=== PATIENT | female | born 2000 | race Two or more races ===

== ENCOUNTER 2024-09-12 03:25 | Emergency (ER) | payer MEDICAID, SELFPAY ==
[2024-09-12 03:25] VITALS: BMI 27.7
[2024-09-12 03:51] VITALS: BP 103/67; PULSE 80; RESP 19; TEMP 36.8; O2SAT 99
--- NOTE | 2024-09-12 03:54 | XR_ITS ---
Examination: Transvaginal ultrasound of the pelvis, complete Technique: Transvaginal sonographic images pelvis performed using burdick scale imaging Exam date and time: September 13, 2019 5041 hrs. Indications: Pelvic pain radiating to the back beginning 4 days ago Findings: Uterus 5.4 cm endometrial stripe 0.4 cm No uterine mass or intrauterine gestation Right ovary obscured by bowel gas Left ovary 3.6 cm arterial flow Impression: No uterine mass or intrauterine gestation
--- NOTE | 2024-09-12 03:55 | PD.EDRME ---
Rapid Medical Screening Exam [facility] Arrival date/time: 09/12/24 03:25 24F with no significant PMH presents to ED with 3-4 days of L pelvic pain. Possible dysuria. Patient denies vaginal bleeding and discharge. Patient had her cycle this month already. Chief Complaint: Abdominal Pain Vital signs: Vital Signs Temperature 98.2 F 09/12/24 03:51 Pulse Rate 80 09/12/24 03:51 Respiratory Rate 19 09/12/24 03:51 Blood Pressure 103/67 09/12/24 03:51 Pulse Oximetry (%) 99 09/12/24 03:51 Oxygen Delivery Method Room Air 09/12/24 03:51
[2024-09-12 05:12] LABS: Collection Type, Urine Clean Catch
[2024-09-12 05:22] LABS: Basophils % (Auto) 0 % (0-2.5); Eosinophils # (Auto) 0.1 Thou/mm3 (0.0-0.5); Eosinophils % (Auto) 2 % (0-10); Hematocrit 43.4 % (36.0-46.0); Hemoglobin 14.1 g/dL (12.0-16.0); Immature Granulocytes % (Auto) 0 % (0-0); Immature Granulocytes Auto 0.02 Thou/mm3 (0.00-0.00); Lymphocytes # (Auto) 2.3 Thou/mm3 (1.0-4.8); Lymphocytes % (Auto) 33 % (10-50); Mean Corpuscular HGB Conc 32.5 g/dl (31.0-37.0); Mean Corpuscular Hemoglobin 27.3 pg (25.0-35.0); Mean Corpuscular Volume 84 fL (80-100); Monocytes # (Auto) 0.4 Thou/mm3 (0.0-0.8); Monocytes % (Auto) 6 % (0-12); Neutrophils # (Auto) 4.1 Thou/mm3 (1.8-7.7); Neutrophils % (Auto) 59 % (37-80); Nucleated Red Blood Cell % 0 /100 WBC (0); Platelet Count 380 Thou/mm3 (140-440); RDW Standard Deviation 40.5 fL (36.4-46.3); Red Blood Count 5.16 Miln/mm3 (4.00-5.20)
[2024-09-12 05:28] LABS: Bilirubin,Urine Negative (Negative); Blood,Urine Negative (Negative); Clarity,Urine Clear (Clear/Hazy); Color,Urine Yellow (Lt Yel-Yel); Culture Indicated,Urine Not Indicated; Glucose, Urine Negative (Negative); Ketones,Urine Negative (Negative); Leukocyte Esterase,Urine Negative (Negative); Nitrite,Urine Negative (Negative); Protein,Urine Trace (Neg - Trace); RBC,Urine 7 /hpf (0-3); Specific Gravity,Urine 1.032 (1.001-1.035); Squamous Epithelial Cell,Urine 7 /hpf (0-5); Urobilinogen,Urine Negative mg/dL (0.0-1.0); WBC,Urine 2 /hpf (0-5)
[2024-09-12 05:29] LABS: HCG Qualitative,Urine Negative
--- NOTE | 2024-09-12 05:29 | PRELIM_ITS ---
Pelvic ultrasound (transabdominal and transvaginal). September 12, 2024 at 0410 hours Clinical history: Left pelvic pain. Technique: Real-time, grayscale, transabdominal and transvaginal pelvic ultrasound was performed using Duplex scanning including arterial inflow, venous outflow, color and spectral Doppler. Comparison: No prior study is available for comparison. Findings: The uterus is normal in size measuring 5.4 x 3.1 x 3.8 cm (sagittal by AP by transverse). The endometrium is unremarkable and measures 4 mm. The right ovary is obscured by bowel gas. The left ovary measures 3.0 x 2.0 x 2.6 cm and is unremarkable. Left ovary demonstrate color flow and spectral waveforms on Doppler evaluation. There is no adnexal mass. There is no free fluid on the submitted images. Impression: Nonvisualized right ovary. Otherwise unremarkable pelvic sonogram. Report Electronically Signed By: Scott Donis 09/12/2024 5:27:17 AM [EST]
[2024-09-12 05:56] LABS: Alanine Aminotransferase < 7 U/L (10-49); Albumin, Serum 5.3 gm/dL (3.5-5.0); Albumin/Globulin Ratio 1.8 (1.2-2.2); Alkaline Phosphatase 86 U/L (46-116); Anion Gap 8 (7-16); Aspartate Amino Transferase 12 U/L (0-34); BUN/Creatinine Ratio 18 Ratio (12-20); Bilirubin,Total 0.3 mg/dL (0.3-1.2); Blood Urea Nitrogen 14 mg/dL (9-23); Calcium 10.1 mg/dL (8.3-10.6); Calcium (Corrected) 10.1 mg/dL (8.5-10.1); Carbon Dioxide 28.7 mMol/L (20.0-31.0); Chloride 104 mMol/L (98-107); Creatinine (Component) 0.8 mg/dL (0.6-1.3); Estimated Creatinine Clearance 114.3 mL/min (>60); Glucose 103 mg/dL (74-106); Lipase 35 U/L (12-53); Osmolality,Calculated 281 (275-295); Potassium 3.5 mMol/L (3.4-5.1); Sodium 141 mMol/L (136-145); Total Protein 8.3 gm/dL (5.7-8.2); eGFR > 60 See Note
[2024-09-12 06:44] VITALS: BP 119/68; PULSE 84; RESP 16; TEMP 36.6; O2SAT 99
[2024-09-12 07:56] VITALS: BP 98/50; PULSE 72; RESP 16; TEMP 36.7; O2SAT 98
--- NOTE | 2024-10-01 07:08 | PD.EDADULT ---
ED General RME/HPI General Chief complaint: Abdominal Pain Stated complaint: PELVIC PAIN Time Seen by Provider: 09/12/24 07:55 Arrival date/time: 09/12/24 03:25 RME / HPI RME / HPI narrative: 09/12/24 03:25 24F with no significant PMH presents to ED with 3-4 days of L pelvic pain. Possible dysuria. Patient denies vaginal bleeding and discharge. Patient had her cycle this month already. 24-year-old female with a history of irregular menstrual cycle axles, chronic perimenstrual pains, who presents with 3 to 4 days of worsening left pelvic/adnexal pain that is greater than her normal pelvic pain. She denies vaginal bleeding or discharge. She denies dysuria or polyuria, Related Data Previous Rx's ?Medication ?Instructions ?Recorded naproxen 500 mg tablet (Naprosyn) 500 mg PO BID #30 tabs 05/31/20 meclizine 50 mg tablet 50 mg PO BID PRN dizziness #14 tabs 09/23/24 ondansetron 4 mg disintegrating 4 mg PO Q6H PRN nausea and 09/23/24 tablet vomiting #10 tabs Allergies Allergy/AdvReac Type Severity Reaction Status Date / Time No Known Allergies Allergy Verified 09/23/24 07:09 Review of Systems Review of Systems Systems Reviewed: All systems reviewed, normal except as documented ED Exam Narrative Physical exam: GENERAL APPEARANCE: AxOx4, generally well-appearing, no acute distress. HEART: Normal rate and regular rhythm, normal S1/S1, no m/r/g LUNGS: CTAB, moving air well. No crackles or wheezes are heard. ABDOMEN: Soft, nontender, nondistended with good bowel sounds heard. NEUROLOGICAL: Grossly nonfocal. Alert and oriented, moving all 4 extremities. CN not formally tested but appear grossly intact. Observed to ambulate with normal gait. Skin: Warm and dry without any rash. Course Quality Measures none Orders Category Date Time Status US transvaginal Stat Exams 09/12/24 03:54 Completed CBC Stat Lab 09/12/24 04:42 Completed CMP [Comprehensive Metabolic Panel] Stat Lab 09/12/24 04:42 Completed HCG Qualitative,Urine Stat Lab 09/12/24 05:01 Completed Lipase Stat Lab 09/12/24 04:42 Completed Urinalysis, C/S if Indicated Stat Lab 09/12/24 05:01 Completed Vital Signs Vital signs: Vital Signs Temperature 98.2 F 09/12/24 03:51 Pulse Rate 80 09/12/24 03:51 Respiratory Rate 19 09/12/24 03:51 Blood Pressure 103/67 09/12/24 03:51 Pulse Oximetry (%) 99 09/12/24 03:51 Oxygen Delivery Method Room Air 09/12/24 03:51 MDM Patient data [facility] records [facility] records Clinical information provided by:: patient and parent Social determinants that could affect healthcare access:: none Patient has the following chronic illnesses:: None How is presenting disease/condition affected by chronic disease/condition?: no chronic disease Evaluation data The following diagnostics were reviewed and interpreted by me:: lab results and radiology exam(s) Lab and/or radiology exams considered but not ordered:: None Interpretation Summary: As per narrative Medications Medications considered but not ordered:: None Medication administrations:: None Consultations Consultation(s) initiated? (list below): No Diagnosis Differential Diagnosis ED Complaint MDM: Chronic pelvic pain, ovarian torsion, tubo-ovarian abscess, PID Most likely diagnosis given after review of the tests above:: See below Admission Indicated Admission indicated?: not indicated Explain why admission is indicated or not indicated:: As per narrative Admission Request Was there a request for admission?: No Disposition Plan Disposition Plan: Discharge Discharge Attestation Discharge Attestation: The patient and all family members were given an opportunity to ask questions and understood the discharge instructions. Discharge instructions specifically effects, indications for sooner follow up or return to the emergency department, and the expected course of current diagnosis. Patient condition: Stable Medical Decision Making MDM Narrative MDM Narrative: Ms. Da Silva is a clinically well-appearing female with left adnexal pain. She is test negative here. Historically she reports chronic perimenstrual pains of which she has seen her primary care doctor for. She does have pain today which is outside of her cycle for assessment. Abdominal exam is benign. Laboratory testing was sent via the E process which shows no acute findings. Significant was a pelvic ultrasound which shows adequate arterial flow to the left ovary without mass, no signs of ovarian torsion. The right ovary was not visible, however she is not not exhibit right adnexal pain. I did review these results there were incomplete in terms of right adnexal pain with the patient and her mother. As she is clinically she is well-appearing with a benign exam, she is low risk and appropriate for outpatient follow-up. She can follow-up with [facility] physician, emergency consultation is not indicated today. Differential Diagnosis Differential Diagnosis: Chronic pelvic pain, ovarian torsion, tubo-ovarian abscess, PID Lab Data 09/12/24 04:42 09/12/24 04:42 Labs: Lab Results 09/12/24 09/12/24 Range/Units 04:42 05:01 WBC 7.0 (3.6-11.0) Thou/mm3 RBC 5.16 (4.00-5.20) Miln/mm3 Hgb 14.1 (12.0-16.0) g/dL Hct 43.4 (36.0-46.0) % MCV 84 (80-100) fL MCH 27.3 (25.0-35.0) pg MCHC 32.5 (31.0-37.0) g/dl RDW Std Deviation 40.5 (36.4-46.3) fL Plt Count 380 (140-440) Thou/mm3 Neut % (Auto) 59 (37-80) % Lymph % (Auto) 33 (10-50) % Saline % (Auto) 6 (0-12) % Eos % (Auto) 2 (0-10) % Baso % (Auto) 0 (0-2.5) % Neut # (Auto) 4.1 (1.8-7.7) Thou/mm3 Lymph # (Auto) 2.3 (1.0-4.8) Thou/mm3 Saline # (Auto) 0.4 (0.0-0.8) Thou/mm3 Eos # (Auto) 0.1 (0.0-0.5) Thou/mm3 Baso # (Auto) 0.0 (0.0-0.2) Thou/mm3 Immature Gran # (Auto) 0.02 H (0.00-0.00) Thou/mm3 Absolute Nucleated RBC 0.00 (0.00-0.00) Thou/mm3 Immature Gran % 0 (0-0) % Nucleated RBC % 0 (0) /100 WBC Sodium 141 (136-145) mMol/L Potassium 3.5 (3.4-5.1) mMol/L Chloride 104 (98-107) mMol/L Carbon Dioxide 28.7 (20.0-31.0) mMol/L Anion Gap 8 (7-16) BUN 14 (9-23) mg/dL Creatinine 0.8 (0.6-1.3) mg/dL Estim Creat Clear Calc 114.3 (>60) mL/min eGFR > 60 (60 - ) See Note BUN/Creatinine Ratio 18 (12-20) Ratio Glucose 103 (74-106) mg/dL Calculated Osmolality 281 (275-295) Calcium 10.1 (8.3-10.6) mg/dL Corrected Calcium 10.1 (8.5-10.1) mg/dL Total Bilirubin 0.3 (0.3-1.2) mg/dL AST 12 (0-34) U/L ALT < 7 L (10-49) U/L Alkaline Phosphatase 86 (46-116) U/L Total Protein 8.3 H (5.7-8.2) gm/dL Albumin 5.3 H (3.5-5.0) gm/dL Globulin 3.0 (2.3-3.5) gm/dL Albumin/Globulin Ratio 1.8 (1.2-2.2) Lipase 35 (12-53) U/L Ur Collection Type Clean Catch Urine Color Yellow (Lt Yel-Yel) Urine Clarity Clear (Clear/Hazy) Urine pH 6.0 (5.0-7.0) Ur Specific [place] 1.032 (1.001-1.035) Urine Protein Trace (Neg - Trace) Urine Glucose (UA) Negative (Negative) Urine Ketones Negative (Negative) Urine Blood Negative (Negative) Urine Nitrite Negative (Negative) Urine Bilirubin Negative (Negative) Urine Urobilinogen (Auto) Negative (0.0-1.0) mg/dL Ur Leukocyte Esterase Negative (Negative) Urine RBC 7 H (0-3) /hpf Urine WBC 2 (0-5) /hpf Ur Squamous Epith Cells 7 H (0-5) /hpf Urine Bacteria None (None) Ur Culture Indicated? Not Indicated Urine HCG, Qual Negative Discharge Plan Plan Patient Disposition: HOME (Self Care) Prescriptions/Referrals Prescriptions/Med Rec: No Action naproxen [Naprosyn] 500 mg tablet 500 mg PO BID Qty: 30 0RF meclizine 50 mg tablet 50 mg PO BID PRN (Reason: dizziness) Qty: 14 0RF ondansetron 4 mg tablet,disintegrating 4 mg PO Q6H PRN (Reason: nausea and vomiting) Qty: 10 0RF Referrals: No Primary/Family,Physician [Primary Care Provider] - In 1 week Problem List Clinical Impression: Chronic female pelvic pain Patient/Caregiver Discharge Instructions Education Materials: ED Pelvic Pain, Unknown Cause Additional Instructions: Follow-up with your [facility] as needed. You can return to the emergency department sooner symptoms worsen or if notes any new, concerning issues. Print Language: Irish Stand Alone Forms: Claudia Award Info., Patient Portal Info Letter
== END 2024-09-12 08:27 | disposition home or self-care (01) ==
PROVIDERS: Physician Assistant; Emergency Provider Emergency Medicine
DX: R10.2 Pelvic and perineal pain (principal)
CPT/HCPCS: 36415; 76830; 80053; 81001; 81025; 83690; 85025; 99284

== ENCOUNTER 2024-09-23 07:07 | Emergency (ER) | payer MEDICAID, SELFPAY ==
[2024-09-23 07:08] VITALS: BMI 27.4
[2024-09-23 07:26] VITALS: BP 143/90; PULSE 100; RESP 18; TEMP 36.8; O2SAT 96; BMI 28.5
--- NOTE | 2024-09-23 07:34 | XR_ITS ---
EXAMINATION: CT head/brain wo con ORDERING PROVIDER: HILOTN Dumont HISTORY: dizziness/lightheaded TECHNIQUE: CT scanner was used in the volumetric, helical non-contrast acquisition of the head with 2-D and 3-D reformats created on a separate workstation and submitted for interpretation. Institutional dose reducing protocols were utilized. RADIATION DOSE: DLP 950 mGy-cm COMPARISON: None. FINDINGS: BRAIN: No acute intracranial hemorrhage, mass effect, or midline shift. Punctate calcific density in the right superior occipital lobe. RESENDIZ-WHITE DIFFERENTIATION: Preserved. EXTRA-AXIAL SPACES: No abnormal collection. SULCI: Normal. VENTRICLES: Normal. BASAL CISTERNS: Normal. VESSELS: No hyperdense vessel sign. DURAL VENOUS SINUSES: Symmetric attenuation. POSTERIOR FOSSA: Normal. MASTOID AIR CELLS: Clear. PARANASAL SINUSES: Trace left maxillary sinus mucosal thickening. ORBITS: Normal. BONES: Normal. SCALP: Normal. IMPRESSION: No acute intracranial findings.
--- NOTE | 2024-09-23 07:34 | EKG_ITS ---
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
--- NOTE | 2024-09-23 07:35 | PD.EDRME ---
Rapid Medical Screening Exam [facility] Arrival date/time: 09/23/24 07:07 24-year-old female with no known medical history presents to the emergency room with a chief complaint of dizziness, lightheadedness, headaches x 2 days. Patient states when she closes her eyes the room spins. I have greeted and performed a focused initial assessment of this patient. A comprehensive ED assessment and evaluation of the patient, analysis of all test results, and completion of the medical decision making process will be conducted by additional ED providers. Chief Complaint: Dizziness Time Seen by Provider: 09/23/24 07:11 Vital signs: Vital Signs Temperature 98.3 F 09/23/24 07:26 Pulse Rate 100 09/23/24 07:26 Respiratory Rate 18 09/23/24 07:26 Blood Pressure 143/90 H 09/23/24 07:26 Pulse Oximetry (%) 96 09/23/24 07:26 Oxygen Delivery Method Room Air 09/23/24 07:26 Vital signs reviewed by provider: Yes
[2024-09-23] MEDS: MECLIZINE HCL 25 MG TABLET 50 MG PO (07:49)
[2024-09-23] MEDS: ONDANSETRON ODT 4 MG TABRAP PO (07:50)
--- NOTE | 2024-09-23 07:50 | PD.EDDIZZY ---
ED Dizzyness RME/HPI General Chief Complaint: Dizziness Stated Complaint: DIZZY,NAUSEA Time Seen by Provider: 09/23/24 07:11 Source: patient Arrival date/time: 09/23/24 07:07 24-year-old female with no known medical history presents to the emergency room with a chief complaint of dizziness, lightheadedness, headaches x 2 days. Patient states when she closes her eyes the room spins. Mode of arrival: ambulatory Limitations: no limitations RME / HPI RME / HPI Narrative: 09/23/24 07:07 24-year-old female with no known medical history presents to the emergency room with a chief complaint of dizziness, lightheadedness, headaches x 2 days. Patient states when she closes her eyes the room spins. I have greeted and performed a focused initial assessment of this patient. A comprehensive ED assessment and evaluation of the patient, analysis of all test results, and completion of the medical decision making process will be conducted by additional ED providers. Related Data Previous Rx's ?Medication ?Instructions ?Recorded naproxen 500 mg tablet (Naprosyn) 500 mg PO BID #30 tabs 05/31/20 Allergies Allergy/AdvReac Type Severity Reaction Status Date / Time No Known Allergies Allergy Verified 09/23/24 07:09 ED Exam General Limitations: Present no limitations Course Orders Category Date Time Status EKG (ED ONLY) *Do not use* NOW Care 09/23/24 07:34 Active Orthostatic Vitals NOW Care 09/23/24 07:[address] head/brain wo con Stat Exams 09/23/24 07:34 Ordered EKG (ED Only) Stat Exams 09/23/24 07:34 Ordered CBC Stat Lab 09/23/24 07:34 Ordered Comprehensive Metabolic Panel Stat Lab 09/23/24 07:34 Ordered Troponin I Stat Lab 09/23/24 07:34 Ordered Urinalysis Stat Lab 09/23/24 07:34 Ordered Urine Culture Stat Lab 09/23/24 07:34 Ordered Meclizine HCl [Antivert] Med 09/23/24 07:34 Discontinued 50 mg PO X1 ONE Ondansetron Odt [Zofran Odt] Med 09/23/24 07:34 Discontinued 4 mg PO X1 ONE Vital Signs Vital signs: Vital Signs Temperature 98.3 F 09/23/24 07:26 Pulse Rate 100 09/23/24 07:26 Respiratory Rate 18 09/23/24 07:26 Blood Pressure 143/90 H 09/23/24 07:26 Pulse Oximetry (%) 96 09/23/24 07:26 Oxygen Delivery Method Room Air 09/23/24 07:26 Dizziness Medications / Prescriptions Medication administrations:: Medication Administration History Discontinued Medications Meclizine HCl (Meclizine Hcl 25 Mg Tablet) 50 mg PO X1 ONE Stop: 09/23/24 07:35 Last Admin: 09/23/24 07:49 Dose: 50 mg Documented By: AMARI Ondansetron HCl (Ondansetron Odt 4 Mg Tabrap) 4 mg PO X1 ONE; Protocol Stop: 09/23/24 07:35 Last Admin: 09/23/24 07:50 Dose: 4 mg Documented By: AMARI Discharge Plan Prescriptions/Referrals Prescriptions/Med Rec: No Action naproxen [Naprosyn] 500 mg tablet 500 mg PO BID Qty: 30 0RF Patient/Caregiver Discharge Instructions Print Language: Cameroonian
[2024-09-23 08:21] LABS: Basophils % (Auto) 0 % (0-2.5); Eosinophils # (Auto) 0.1 Thou/mm3 (0.0-0.5); Eosinophils % (Auto) 2 % (0-10); Hematocrit 41.6 % (36.0-46.0); Hemoglobin 13.5 g/dL (12.0-16.0); Immature Granulocytes % (Auto) 0 % (0-0); Immature Granulocytes Auto 0.01 Thou/mm3 (0.00-0.00); Lymphocytes # (Auto) 1.8 Thou/mm3 (1.0-4.8); Lymphocytes % (Auto) 28 % (10-50); Mean Corpuscular HGB Conc 32.5 g/dl (31.0-37.0); Mean Corpuscular Hemoglobin 27.5 pg (25.0-35.0); Mean Corpuscular Volume 85 fL (80-100); Monocytes # (Auto) 0.3 Thou/mm3 (0.0-0.8); Monocytes % (Auto) 5 % (0-12); Neutrophils # (Auto) 4.2 Thou/mm3 (1.8-7.7); Neutrophils % (Auto) 65 % (37-80); Nucleated Red Blood Cell % 0 /100 WBC (0); Platelet Count 300 Thou/mm3 (140-440); RDW Standard Deviation 41.7 fL (36.4-46.3); Red Blood Count 4.91 Miln/mm3 (4.00-5.20); White Blood Count 6.5 Thou/mm3 (3.6-11.0)
[2024-09-23 08:38] LABS: Alanine Aminotransferase 13 U/L (10-49); Albumin, Serum 4.8 gm/dL (3.5-5.0); Albumin/Globulin Ratio 1.7 (1.2-2.2); Alkaline Phosphatase 68 U/L (46-116); Anion Gap 9 (7-16); Aspartate Amino Transferase 14 U/L (0-34); BUN/Creatinine Ratio 14 Ratio (12-20); Bilirubin,Total 0.4 mg/dL (0.3-1.2); Blood Urea Nitrogen 11 mg/dL (9-23); Carbon Dioxide 24.9 mMol/L (20.0-31.0); Chloride 104 mMol/L (98-107); Creatinine (Component) 0.8 mg/dL (0.6-1.3); Estimated Creatinine Clearance 115.8 mL/min (>60); Globulin 2.9 gm/dL (2.3-3.5); Glucose 101 mg/dL (74-106); Osmolality,Calculated 275 (275-295); Potassium 3.8 mMol/L (3.4-5.1); Sodium 138 mMol/L (136-145); Total Protein 7.7 gm/dL (5.7-8.2); Troponin I < 0.002 ng/mL (0.0-0.045); eGFR > 60 See Note
--- NOTE | 2024-09-23 08:52 | PC.NURSE ---
PT STATES THE MECLIZINE HAS NOT HELPED HER DIZZINESS. PT REQUESTED THIS NURSE TO GO TO THE BATHROOM WITH HER BECAUSE SHE WAS AFRAID SHE WOULD FALL OVER. THIS NURSE WENT TO THE BATHROOM W/ PT AND HELPED HER GIVE A URINE SPECIMEN. NOTE GIVEN TO JONATHAN MAYA RE: NO RESULTS FROM MECLIZINE. PT ALSO WONDERS IF HER EARS CAN BE LOOKED IN TO SEE IF SHE HAS AN EAR INFECTION. PROVIDER INFORMED.
[2024-09-23 09:59] LABS: Collection Type, Urine Clean Catch
[2024-09-23 10:13] LABS: Bacteria,Urine Rare; Bilirubin,Urine Negative (Negative); Blood,Urine Negative (Negative); Clarity,Urine Clear (Clear/Hazy); Color,Urine Colorless (Lt Yel-Yel); Glucose, Urine Negative (Negative); Ketones,Urine Negative (Negative); Leukocyte Esterase,Urine Positive (Negative); Nitrite,Urine Negative (Negative); Protein,Urine Negative (Neg - Trace); RBC,Urine 11 /hpf (0-3); Specific Gravity,Urine 1.008 (1.001-1.035); Squamous Epithelial Cell,Urine 4 /hpf (0-5); Urobilinogen,Urine Negative mg/dL (0.0-1.0); WBC,Urine 83 /hpf (0-5)
[2024-09-23 11:48] VITALS: BP 117/84; PULSE 94; RESP 18; TEMP 36.8; O2SAT 99
[2024-09-23 11:51] LABS: HCG Qualitative,Urine Negative
--- NOTE | 2024-09-23 11:57 | PD.EDDIZZY ---
ED Dizzyness RME/HPI General Chief Complaint: Dizziness Stated Complaint: DIZZY,NAUSEA Time Seen by Provider: 09/23/24 07:11 Arrival date/time: 09/23/24 07:07 This is a 24-year-old female that comes into the emergency room with complaints of lightheadedness, dizziness, and headache for 2 days. Hx migraines. RME / HPI RME / HPI Narrative: 09/23/24 07:07 24-year-old female with no known medical history presents to the emergency room with a chief complaint of dizziness, lightheadedness, headaches x 2 days. Patient states when she closes her eyes the room spins. I have greeted and performed a focused initial assessment of this patient. A comprehensive ED assessment and evaluation of the patient, analysis of all test results, and completion of the medical decision making process will be conducted by additional ED providers. Related Data Previous Rx's ?Medication ?Instructions ?Recorded naproxen 500 mg tablet (Naprosyn) 500 mg PO BID #30 tabs 05/31/20 cephalexin 500 mg capsule 500 mg PO TID 7 days #21 caps 09/23/24 meclizine 50 mg tablet 50 mg PO BID PRN dizziness #14 tabs 09/23/24 ondansetron 4 mg disintegrating 4 mg PO Q6H PRN nausea and 09/23/24 tablet vomiting #10 tabs Allergies Allergy/AdvReac Type Severity Reaction Status Date / Time No Known Allergies Allergy Verified 09/23/24 07:09 Review of Systems Review of Systems Systems Reviewed: All systems reviewed, normal except as documented Past Medical History Past Medical History CARDIAC: Negative Congestive Heart Failure RESPIRATORY: Negative Chronic Obstructive Pulmonary Disease (COPD) GENITOURINARY: Negative Renal Disease ENDOCRINE: Negative Diabetes Mellitus Type 1 or Diabetes Mellitus Type 2 Social History SMOKING STATUS: Never smoker Travel History EBOLA RISK: No ED Exam General General appearance: Present alert and in no apparent distress Head Head exam: Present atraumatic Eye Eye exam: Present normal appearance, PERRL and EOMI ENT ENT exam: Present normal exam, normal oropharynx and mucous membranes moist Neck Neck exam: Present normal inspection, full ROM and trachea midline Chest Chest inspection: Present normal inspection and symmetric chest wall rise Respiratory Respiratory exam: Present normal lung sounds bilaterally Cardiovascular Cardiovascular exam: Present regular rate, normal rhythm and normal heart sounds Abdominal Exam Abdominal exam: Present soft Extremities Exam Extremities exam: Present normal inspection and full ROM Back Exam Back exam: Present normal inspection and full ROM Neurological Exam Neurological exam: Present alert, oriented X3 and CN II-XII intact Psychiatric Psychiatric exam: Present normal affect and normal mood Skin Skin exam: Present warm, dry, intact and normal color Course Quality Measures none Orders Category Date Time Status EKG (ED ONLY) *Do not use* NOW Care 09/23/24 07:34 Completed Orthostatic Vitals NOW Care 09/23/24 07:[address] head/brain wo con Stat Exams 09/23/24 07:34 Completed EKG (ED Only) Stat Exams 09/23/24 07:34 Draft CBC Stat Lab 09/23/24 08:00 Completed Comprehensive Metabolic Panel Stat Lab 09/23/24 08:00 Completed HCG Qualitative,Urine Stat Lab 09/23/24 09:30 Completed Troponin I Stat Lab 09/23/24 08:00 Completed Urinalysis Stat Lab 09/23/24 09:30 Completed Urine Culture Stat Lab 09/23/24 09:30 Completed Ibuprofen Tab [Motrin Tab] Med 09/23/24 12:54 Discontinued 800 mg PO X1 ONE Meclizine HCl [Antivert] Med 09/23/24 07:34 Discontinued 50 mg PO X1 ONE Ondansetron Odt [Zofran Odt] Med 09/23/24 07:34 Discontinued 4 mg PO X1 ONE Prochlorperazine Maleate [Compazine] Med 09/23/24 12:54 Discontinued 5 mg PO X1 ONE cefTRIAXone [Rocephin] 1,000 mg Med 09/23/24 12:54 Discontinued Lidocaine 1% 20 ml [Xylocaine 1% 20 ML] 2.1 ml IM X1 Vital Signs Vital signs: Vital Signs Temperature 98.3 F 09/23/24 07:26 Pulse Rate 100 09/23/24 07:26 Respiratory Rate 18 09/23/24 07:26 Blood Pressure 143/90 H 09/23/24 07:26 Pulse Oximetry (%) 96 09/23/24 07:26 Oxygen Delivery Method Room Air 09/23/24 07:26 Procedures -ED EKG Interpretation #1: Date of EK09/23/24 Time of EK:55 Rate: 100 Interpretation: Interpreted by me (sinus rhythm/sinus tachycardia) EKG Impression: Normal sinus rhythm, No ectopy, Normal QRS and Normal intervals Dizziness MDM Narrative MDM Narrative:: Patient feels better after meclizine. Patient able to ambulate without assistance. Patient white count was 6.5 hemoglobin and hematocrit are 13.5 and 41.6 CMP unremarkable urine shows some leukocyte Estrace, RBCs, white blood cells. Patient was having some abdominal pain. Will treat patient for UTI. I explained to patient that I will send her home with some meclizine. EKG shows sinus tachycardia ct head:FINDINGS: BRAIN: No acute intracranial hemorrhage, mass effect, or midline shift. Punctate calcific density in the right superior occipital lobe. RESENDIZ-WHITE DIFFERENTIATION: Preserved. EXTRA-AXIAL SPACES: No abnormal collection. SULCI: Normal. VENTRICLES: Normal. BASAL CISTERNS: Normal. VESSELS: No hyperdense vessel sign. DURAL VENOUS SINUSES: Symmetric attenuation. POSTERIOR FOSSA: Normal. MASTOID AIR CELLS: Clear. PARANASAL SINUSES: Trace left maxillary sinus mucosal thickening. ORBITS: Normal. BONES: Normal. SCALP: Normal. IMPRESSION: No acute intracranial findings. Follow up with primary provider in 1-2 days. Come back to ED if symptoms change or worsen Patient data External records reviewed:: [facility] previous records Clinical information provided by:: patient Social determinants that could affect healthcare access:: none Patient has the following chronic illnesses:: none How is presenting disease/condition affected by chronic disease/condition?: no chronic disease Evaluation data The following diagnostics were reviewed and interpreted by me:: lab results, radiology exam(s) and EKG tracing(s) Lab and/or radiology exams considered but not ordered:: none Interpretation Summary: see note Medications / Prescriptions Medications or Prescriptions considered but not ordered:: none Medication administrations:: Medication Administration History Discontinued Medications Ceftriaxone Sodium 1,000 mg/ (Lidocaine HCl 2.1 ml) 0 mg IM X1 ONE Stop: 09/23/24 12:55 Last Admin: 09/23/24 13:27 Dose: 1,000 mg Documented By: DARIELA Ibuprofen (Ibuprofen Tab 400 Mg Tablet) 800 mg PO X1 ONE Stop: 09/23/24 12:55 Last Admin: 09/23/24 13:23 Dose: 800 mg Documented By: DARIELA Meclizine HCl (Meclizine Hcl 25 Mg Tablet) 50 mg PO X1 ONE Stop: 09/23/24 07:35 Last Admin: 09/23/24 07:49 Dose: 50 mg Documented By: AMARI Ondansetron HCl (Ondansetron Odt 4 Mg Tabrap) 4 mg PO X1 ONE; Protocol Stop: 09/23/24 07:35 Last Admin: 09/23/24 07:50 Dose: 4 mg Documented By: AMARI Prochlorperazine Maleate (Prochlorperazine Maleate 5 Mg Tablet) 5 mg PO X1 ONE Stop: 09/23/24 12:55 Last Admin: 09/23/24 14:13 Dose: 5 mg Documented By: DARIELA Comments: Given after brought from pharmacy see mar Consultations Consultation(s) initiated? (list below): No Diagnosis Most likely diagnosis given after review of the tests above:: uti Admission Indicated Admission indicated?: not indicated Admission Request Was there a request for admission?: No Disposition Plan Disposition Plan: Discharge Discharge Attestation Discharge Attestation: The patient and all family members were given an opportunity to ask questions and understood the discharge instructions. Discharge instructions specifically effects, indications for sooner follow up or return to the emergency department, and the expected course of current diagnosis. Patient condition: Stable Discharge Plan Plan Patient Disposition: HOME (Self Care) Patient condition on transfer: Stable Prescriptions/Referrals Prescriptions/Med Rec: New cephalexin 500 mg capsule 500 mg PO TID 7 Days Qty: 21 0RF meclizine 50 mg tablet 50 mg PO BID PRN (Reason: dizziness) Qty: 14 0RF ondansetron 4 mg tablet,disintegrating 4 mg PO Q6H PRN (Reason: nausea and vomiting) Qty: 10 0RF No Action naproxen [Naprosyn] 500 mg tablet 500 mg PO BID Qty: 30 0RF Referrals: No Primary/Family,Physician [Primary Care Provider] - In 1 week Problem List Clinical Impression: Dizziness, UTI (urinary tract infection) Patient/Caregiver Discharge Instructions Discharge Activity: activity as tolerated Education Materials: Vertigo Medicine Tx, ED CYSTITIS Female Adult Additional Instructions: Follow up with primary provider in 1-2 days. Come back to ED if symptoms change or worsen. Follow-up with urine culture with primary provider. Print Language: Irish Stand Alone Forms: Claudia Award Info., Patient Portal Info Letter PA/HILTON Supervising Physician PA/SIDE DOOR WORKER Supervising Physician: [email or web address]
[2024-09-23 12:36] VITALS: BP 115/77; BP 119/75; BP 124/72; PULSE 84; PULSE 88; PULSE 94
[2024-09-23] MEDS: IBUPROFEN TAB 400 MG TABLET 800 MG PO (13:23)
[2024-09-23] MEDS: cefTRIAXone 1,000 MG, LIDOCAINE 1% 20 ML 2.1 ML IM (13:27)
[2024-09-23] MEDS: PROCHLORPERAZINE MALEATE 5 MG TABLET PO (14:13)
[2024-09-23 14:19] VITALS: BP 119/76; PULSE 90; RESP 17; TEMP 36.7; O2SAT 98
== END 2024-09-23 16:57 | disposition home or self-care (01) ==
PROVIDERS: Nurse Practitioner Family; Emergency Provider Emergency Medicine
DX: N39.0 Urinary tract infection, site not specified (principal); R42 Dizziness and giddiness; R00.0 Tachycardia, unspecified
CPT/HCPCS: 36415; 70450; 80053; 81001; 81025; 84484; 85025; 87086; 93005; 96372; 99284; J0696; J3490; Q0162; Q0164; A9270

== ENCOUNTER 2025-06-11 03:15 | Emergency (ER) | payer MEDICAID, SELFPAY ==
[2025-06-11 03:16] VITALS: BMI 25.8
[2025-06-11 04:14] VITALS: BP 120/78; PULSE 73; RESP 18; TEMP 36.7; O2SAT 100
--- NOTE | 2025-06-11 04:28 | EDNOTE_ITS ---
Neuro Symptoms Deficit-RME/HPI General Chief Complaint: General Adult/Misc Complain Stated Complaint: NUMBNESS IN ARMS, HANDS, AND FACE Time Seen by Provider: 06/11/25 04:26 Arrival date/time: 06/11/25 03:15 25F with history of anxiety presents to ED with 2 days of tingling in arms, face, and BUE. Patient denies marco antonio pain, fall/trauma, fevers/chills, weakness, vision changes, dizziness, and AMS. Limitations: no limitations Related Data Previous Rx's ?Medication ?Instructions ?Recorded naproxen 500 mg tablet (Naprosyn) 500 mg PO BID #30 ta bs 05/31/20 meclizine 50 mg tablet 50 mg PO BID PRN dizziness # 14 tabs 09/23/24 ondansetron 4 mg disintegrating 4 mg PO Q6H PRN nausea and 09/23/24 tablet vomiting #10 tabs Allergies Allergy/AdvReac Type Severity Reaction Status Date / Time No Known Allergies Allergy Verified 09/23/24 07:09 Review of Systems Review of Systems Systems Reviewed: All systems reviewed, normal except as documented Musculoskeletal Musculoskeletal: Reports tingling Neurologic Neurologic: Reports as per HPI and Reports tingling Past Medical History Past Medical History NEUROLOGIC: Negative Neurological Disorders CARDIAC: Negative Cardiac Disorders or Congestive Heart Failure RESPIRATORY: Positive Asthma (resolved per pt); Negative Chronic Obstructive Pulmonary Disease (COPD) GASTROINTESTINAL: Negative Gastrointestinal Disorders GENITOURINARY: Negative Genitourinary Disorders or Renal Disease MUSCULOSKELETAL: Negative Musculoskeletal Disorders ENDOCRINE: Negative Endocrine Disorders, Diabetes Mellitus Type 1 or Diabetes Mellitus Type 2 HEMATOLOGIC: Negative Blood Disorders PSYCHO/SOCIAL: Positive Anxiety OTHER HISTORY: Negative Autoimmune Disease, Blood Transfusions or Cancer Social History SMOKING STATUS: Never smoker ED Exam General Limitations: Present no limitations General appearance: Present alert and in no apparent distress Head Head exam: Present atraumatic Eye Eye exam: Present normal appearance, PERRL and EOMI Neck Neck exam: Present normal inspection, full ROM and trachea midline Chest Chest inspection: Present normal inspection and symmetric chest wall rise Extremities Exam Extremities exam: Present normal inspection and full ROM Neurological Exam Neurological exam: Present alert, oriented X3 and CN II-XII intact Psychiatric Psychiatric exam: Present normal affect and normal mood Skin Skin exam: Present warm, dry, intact and normal color Course Quality Measures none Vital Signs Vital signs: Vital Signs Temperature 98.1 F 06/11/25 04:14 Pulse Rate 73 06/11/25 04:14 Respiratory Rate 18 06/11/25 04:14 Blood Pressure 120/78 06/11/25 04:14 Pulse Oximetry (%) 100 06/11/25 04:14 Oxygen Delivery Method Room Air 06/11/25 04:14 O2 at 100% on RA and WNLs Neuro Symptoms / Deficit MDM Narrative MDM Narrative:: 25F with history of anxiety presents to ED with 2 days of tingling in arms, face, and BUE. Patient denies any pain, fall/trauma, fevers/chills, weakness, vision changes, dizziness, and AMS. Physical exam reveals normal pupil response and EOM. CN II-XII grossly intact. Neg pronator drift test. Gait normal. Speech normal. UE strength equal bilaterally. Normal WOB. Patient is afebrile, calm, and alert. Patient declines basic work-up as she just wanted to make sure it was nothing scary. Patient also declines meds and observation period. Patient data External records reviewed:: [facility] previous records Clinical information provided by:: patient Social determinants that could affect healthcare access:: mental health Patient has the following chronic illnesses:: anxiety How is presenting disease/condition affected by chronic disease/condition?: exacerbated by Evaluation data The following diagnostics were reviewed and interpreted by me:: other (specify) (none) Lab and/or radiology exams considered but not ordered:: not ordered Interpretation Summary: n/a Medications / Prescriptions Medications or Prescriptions considered but not ordered:: not ordered Medication administrations:: n/a Consultations Consultation(s) initiated? (list below): No Diagnosis Neuro Differential Diagnosis: carpal tunnel syndrome, convulsions, delirium, subarachnoid hemorrhage, peripheral neuropathy, cerebrovascular accident, multiple sclerosis, transient cerebral ischemia and other (paresthesia) Most likely diagnosis given after review of the tests above:: paresthesia Admission Indicated Admission indicated?: not indicated Admission Request Was there a request for admission?: No Disposition Plan Disposition Plan: Discharge Discharge Attestation Discharge Attestation: The patient and all family members were given an opportunity to ask questions and understood the discharge instructions. Discharge instructions specifically effects, indications for sooner follow up or return to the emergency department, and the expected course of current diagnosis. Patient condition: Stable Discharge Plan Plan Patient Disposition: HOME (Self Care) Discharge Disposition comment: Stable Prescriptions/Referrals Prescriptions/Med Rec: No Action naproxen [Naprosyn] 500 mg tablet 500 mg PO BID Qty: 30 0RF meclizine 50 mg tablet 50 mg PO BID PRN (Reason: dizziness) Qty: 14 0RF ondansetron 4 mg tablet,disintegrating 4 mg PO Q6H PRN (Reason: nausea and vomiting) Qty: 10 0RF Problem List Clinical Impression: Paresthesia Patient/Caregiver Discharge Instructions Education Materials: ED Paraesthesias Additional Instructions: Please follow-up with PCP within 24-48 hours and return immediately if symptoms worsen. Print Language: Ghanaian Stand Alone Forms: Patient Portal Info Letter PA/INSEAM [employer]ACH[employer]PERATOR Supervising Physician PA/HILTON Supervising Physician: Dr. Antunez
== END 2025-06-11 04:30 | disposition home or self-care (01) ==
LOC: SERX 05:02
PROVIDERS: Emergency Provider Emergency Medicine
DX: R20.2 Paresthesia of skin (principal)
CPT/HCPCS: 99281

== ENCOUNTER 2025-06-11 18:06 | Emergency (ER) | payer MEDICAID, SELFPAY ==
[2025-06-11 18:34] VITALS: BP 123/79; PULSE 89; RESP 18; TEMP 37.2; O2SAT 99
--- NOTE | 2025-06-11 18:57 | EDNOTE_ITS ---
Neuro Symptoms Deficit-RME/HPI General Chief Complaint: Neuro Symptoms/Deficit Stated Complaint: NUMBNESS B/L ARMS D/C'D TODAY Time Seen by Provider: 06/11/25 18:52 Arrival date/time: 06/11/25 18:06 25-year-old female patient came in for evaluation regarding tingling sensation bilateral upper extremity, palpitation, started earlier this morning. Patient went to work, and the symptoms totally gone only to recur when she is at home. Patient denies any headache denies any neck pain denies any upper or lower extremity weakness. Denies any other complaints she had a history of anxiety but not taking any medication. Related Data Previous Rx's ?Medication ?Instructions ?Recorded naproxen 500 mg tablet (Naprosyn) 500 mg PO BID #30 ta bs 05/31/20 meclizine 50 mg tablet 50 mg PO BID PRN dizziness # 14 tabs 09/23/24 ondansetron 4 mg disintegrating 4 mg PO Q6H PRN nausea and 09/23/24 tablet vomiting #10 tabs alprazolam 0.5 mg tablet (Xanax) 0.5 mg PO BID PRN anx iety #10 tabs 06/11/25 Allergies Allergy/AdvReac Type Severity Reaction Status Date / Time No Known Allergies Allergy Verified 06/11/25 18:08 Review of Systems Review of Systems Narrative Review of Systems: Review of system reviewed and within normal limits except mentioned in HPI ED Exam Narrative Physical exam: VITAL SIGNS: Reviewed. GENERAL APPEARANCE: Alert and interactive, follows commands, no acute distress, HEAD AND FACE: Non-traumatic. ENT: PERRL, pink conjunctivitis, eyelid no trauma, Mucous membrane moist. NECK: Supple, nontender, no nuchal rigidity. CHEST: No tenderness, no crepitus, no paradoxical movement, no retractions. LUNGS: Clear, well ventilated, symmetric, no rales, no wheezing, no ronchi, no stridor, good breath sounds bilaterally. HEART: Regular rate, regular rhythm, no murmur, no gallops. ABDOMEN: Soft, positive bowel sounds, nondistended, no guarding, nontender, no rebound, no masses, RECTAL: Deferred. GENITAL: Deferred. NEUROLOGICAL: Gross motor function intact sensory function intact, Appropriate for age. MUSCULOSKELETAL: low back nontender, full range of motion. EXTREMITIES: Nontender, full range of motion. No swelling to bilateral upper extremity, warm to touch pulses +2 bilateral SKIN: Color pink, dry, no rash, no lacerations, no abrasions, no contusions. LYMPHATICS: Deferred. Course Quality Measures none Orders Category Date Time Status Diazepam [Valium] Med 06/11/25 18:53 Discontinued 5 mg PO X1 ONE Vital Signs Vital signs: Vital Signs Temperature 98.9 F 06/11/25 18:34 Pulse Rate 89 06/11/25 18:34 Respiratory Rate 18 06/11/25 18:34 Blood Pressure 123/79 06/11/25 18:34 Pulse Oximetry (%) 99 06/11/25 18:34 Oxygen Delivery Method Room Air 06/11/25 18:34 Neuro Symptoms / Deficit MDM Narrative MDM Narrative:: 25-year-old female patient came in for evaluation regarding tingling sensation bilateral upper extremity, palpitation, started earlier this morning. Patient went to work, and the symptoms totally gone only to recur when she is at home. Patient denies any headache denies any neck pain denies any upper or lower extremity weakness. Denies any other complaints she had a history of anxiety but not taking any medication. Imaging workup is not needed at this time. Patient is having anxiety like symptoms. Patient was given Valium with significant proving of symptoms. Stable discharge home Patient data External records reviewed:: None Clinical information provided by:: patient Social determinants that could affect healthcare access:: none Patient has the following chronic illnesses:: Although pt's initial presentation was concerning, Pt now reports feeling better after Ativan and has an unremarkable vital signs. Stable for D/C. Hydroxyzine given as needed How is presenting disease/condition affected by chronic disease/condition?: exacerbated by Evaluation data The following diagnostics were reviewed and interpreted by me:: other (specify) (None) Lab and/or radiology exams considered but not ordered:: None Interpretation Summary: None Medications / Prescriptions Medications or Prescriptions considered but not ordered:: None Medication administrations:: Medication Administration History Discontinued Medications Diazepam (Diazepam 5 Mg Tablet) 5 mg PO X1 ONE Stop: 06/11/25 18:54 Valium Consultations Consultation(s) initiated? (list below): No Diagnosis Neuro Differential Diagnosis: peripheral neuropathy and other (Anxiety, paresthesia) Most likely diagnosis given after review of the tests above:: Anxiety, Admission Indicated Admission indicated?: not indicated Admission Request Was there a request for admission?: No Disposition Plan Disposition Plan: Discharge Discharge Attestation Discharge Attestation: The patient was given an opportunity to ask questions and understood the discharge instructions. Discharge instructions specifically effects, indications for sooner follow up or return to the emergency department, and the expected course of current diagnosis. Patient condition: Stable Discharge Plan Plan Patient Disposition: HOME (Self Care) Discharge Disposition comment: Stable Prescriptions/Referrals Prescriptions/Med Rec: New alprazolam [Xanax] 0.5 mg tablet 0.5 mg PO BID PRN (Reason: anxiety) Qty: 10 0RF No Action naproxen [Naprosyn] 500 mg tablet 500 mg PO BID Qty: 30 0RF meclizine 50 mg tablet 50 mg PO BID PRN (Reason: dizziness) Qty: 14 0RF ondansetron 4 mg tablet,disintegrating 4 mg PO Q6H PRN (Reason: nausea and vomiting) Qty: 10 0RF Problem List Clinical Impression: Paresthesia, Anxiety Patient/Caregiver Discharge Instructions Discharge Activity: activity as tolerated Education Materials: Treating Anxiety Disorders ... Additional Instructions: Thank you for the opportunity for serving you today. You are stable for discharged . You are advised to: Follow-up with your PCP in 1 to 2 days Return to ED for worsening of symptoms Increase oral fluids Take medication as prescribed Print Language: Welsh Stand Alone Forms: Claudia Award Info., Patient Portal Info Letter PA/HILTON Supervising Physician JOSE/HILTON Supervising Physician: MD Harmony
[2025-06-11] MEDS: DIAZEPAM 5 MG TABLET PO (19:10)
== END 2025-06-11 19:17 | disposition home or self-care (01) ==
LOC: SERX 19:09
PROVIDERS: Emergency Provider Emergency Medicine
DX: F41.9 Anxiety disorder, unspecified (principal); R20.2 Paresthesia of skin
CPT/HCPCS: 99281; A9270